=== PATIENT | male | born 1995 | race Hispanic/Latino ===

== ENCOUNTER 2019-05-02 11:38 | Emergency (ER) | payer OTHER ==
[2019-05-02] MEDS ORDERED: ONDANSETRON HCL 4 MG/2 ML VIAL ONE (12:28)
[2019-05-02] MEDS ORDERED: SODIUM CHLORIDE 0.9% 1000ML 1,000 ML IV ONE (12:28)
[2019-05-02] MEDS ORDERED: KETOROLAC TROMETHAMINE 30MG/ML ONE (12:28)
[2019-05-02 12:35] LABS: BASOPHILS % (AUTO) 0.5 % (0.0-5.0); HEMATOCRIT 50.2 % (42-54); LYMPHOCYTES % (AUTO) 4.4 % (21.0-51.0); MEAN CORPUSCULAR HEMOGLOBIN 30.4 pg (27.0-33.0); MEAN CORPUSCULAR HGB CONC 34.8 g/dL (32.0-36.0); MEAN CORPUSCULAR VOLUME 87.4 fL (79-99); MONOCYTES % (AUTO) 2.1 % (3.0-13.0); PLATELET COUNT (AUTO) 221 K/uL (130-400); RED BLOOD CELL COUNT(AUTO) 5.74 MIL/uL (4.50-6.20); RED CELL DISTRIBUTION WIDTH 12.8 % (11.0-15.5); WHITE BLOOD COUNT (AUTO) 15.8 K/uL (4.8-10.8)
[2019-05-02 12:35] LABS: APPEARANCE,URINE Clear (CLEAR); BILIRUBIN,URINE Negative (NEGATIVE); COLOR,URINE Yellow (YELLOW); GLUCOSE, URINE (UA) Negative (NEGATIVE); KETONES,URINE >=160 mg/dL (NEGATIVE); LEUKOCYTE ESTERASE ,URINE Negative (NEGATIVE); NITRATE,URINE Negative (NEGATIVE); OCCULT BLOOD,URINE Negative (NEGATIVE); PH,URINE >=9.0 (5.0-8.0); PROTEIN,URINE POS 1+ mg/dL (NEGATIVE)
[2019-05-02 12:44] LABS: AMPHET/METH SCREEN,URINE NEGATIVE (NEGATIVE); BARBITURATE SCREEN, URINE NEGATIVE (NEGATIVE); BENZODIAZEPINES SCREEN,URINE NEGATIVE (NEGATIVE); CANNABINOID SCREEN,URINE POSITIVE (NEGATIVE); COCAINE SCREEN,URINE NEGATIVE (NEGATIVE); OPIATE SCREEN,URINE NEGATIVE (NEGATIVE); PHENCYCLIDINE SCREEN,URINE NEGATIVE (NEGATIVE)
[2019-05-02 12:46] LABS: POTASSIUM 3.6 mmol/L (3.5-5.1)
[2019-05-02 12:50] LABS: ALBUMIN 4.9 g/dL (3.5-5.0); BILIRUBIN,DIRECT 0.2 mg/dL (0.0-0.3); BILIRUBIN,TOTAL 1.3 mg/dL (0.2-1.0); TOTAL PROTEIN, SERUM 8.4 g/dL (6.0-8.3)
[2019-05-02 12:51] LABS: BACTERIA,URINE Few /HPF (None Seen); MUCUS,URINE Few LPF (None Seen); SQUAMOUS EPITHELIAL CELL,UR 0-2 /HPF (0-2)
== END 2019-05-02 15:28 | disposition home or self-care (01) ==
LOC: EDH 11:38
DX: K52.9 Noninfective gastroenteritis and colitis, unspecified (principal); F12.10 Cannabis abuse, uncomplicated
CPT/HCPCS: 36415; 80048; 80076; 80305; 81001; 83690; 85025; 96361; 96374; 96375; 99285; J1885; J2405; J7030

== ENCOUNTER 2019-05-03 06:38 | Emergency (ER) | payer OTHER ==
[2019-05-03 07:28] LABS: BASOPHILS % (AUTO) 0.3 % (0.0-5.0); EOSINOPHILS % (AUTO) 0.1 % (0.0-8.0); HEMATOCRIT 48.7 % (42-54); LYMPHOCYTES % (AUTO) 9.9 % (21.0-51.0); MEAN CORPUSCULAR HEMOGLOBIN 30.3 pg (27.0-33.0); MONOCYTES % (AUTO) 8.4 % (3.0-13.0); NEUTROPHILS % (AUTO) 81.3 % (40.0-77.0); PLATELET COUNT (AUTO) 216 K/uL (130-400); RED BLOOD CELL COUNT(AUTO) 5.46 MIL/uL (4.50-6.20); RED CELL DISTRIBUTION WIDTH 12.9 % (11.0-15.5); WHITE BLOOD COUNT (AUTO) 16.5 K/uL (4.8-10.8)
[2019-05-03] MEDS ORDERED: PROCHLORPERAZINE EDISYLATE 10 MG/2 ML VIAL ONE (07:33)
[2019-05-03] MEDS ORDERED: DiphenhydrAMINE HCL 50 MG/ML VIAL ONE (07:33)
[2019-05-03] MEDS ORDERED: SODIUM CHLORIDE 0.9% 100 ML IV ONE (07:34)
[2019-05-03] MEDS ORDERED: FAMOTIDINE/PF 20 MG/2 ML VIAL IV ONE (07:35)
[2019-05-03 07:36] LABS: POTASSIUM 3.4 mmol/L (3.5-5.1)
[2019-05-03] MEDS ORDERED: IOHEXOL-350 75 ML VIAL IV ONE (07:55)
[2019-05-03 07:57] LABS: APPEARANCE,URINE CLEAR (CLEAR); BILIRUBIN,URINE MODERATE (NEGATIVE); COLOR,URINE YELLOW (YELLOW); GLUCOSE, URINE (UA) NEGATIVE (NEGATIVE); KETONES,URINE >=80 mg/dL (NEGATIVE); LEUKOCYTE ESTERASE ,URINE NEGATIVE (NEGATIVE); NITRATE,URINE NEGATIVE (NEGATIVE); OCCULT BLOOD,URINE TRACE-INTACT (NEGATIVE); PROTEIN,URINE 30 mg/dL (NEGATIVE)
[2019-05-03 08:07] LABS: ALBUMIN 4.3 g/dL (3.5-5.0); BILIRUBIN,TOTAL 1.4 mg/dL (0.2-1.0); TOTAL PROTEIN, SERUM 7.8 g/dL (6.0-8.3)
[2019-05-03 08:08] LABS: BACTERIA,URINE Few /HPF (None Seen); MUCUS,URINE Moderate LPF (None Seen)
[2019-05-03 08:10] LABS: AMPHET/METH SCREEN,URINE NEGATIVE (NEGATIVE); BARBITURATE SCREEN, URINE NEGATIVE (NEGATIVE); BENZODIAZEPINES SCREEN,URINE NEGATIVE (NEGATIVE); CANNABINOID SCREEN,URINE POSITIVE (NEGATIVE); COCAINE SCREEN,URINE NEGATIVE (NEGATIVE); OPIATE SCREEN,URINE NEGATIVE (NEGATIVE); PHENCYCLIDINE SCREEN,URINE NEGATIVE (NEGATIVE)
[2019-05-03] MEDS ORDERED: MAGNESIUM HYDROXIDE 30 ML/UDCUP ONE (08:20)
[2019-05-03] MEDS ORDERED: LIDOCAINE HCL 2% VISCOUS 15 ML UDCUP ONE (08:20)
[2019-05-03] MEDS ORDERED: SODIUM CHLORIDE 0.9% 1000ML 1,000 ML IV ONE (08:43)
== END 2019-05-03 09:37 | disposition home or self-care (01) ==
LOC: EDH 06:38
DX: A09 Infectious gastroenteritis and colitis, unspecified (principal); E86.0 Dehydration; R10.13 Epigastric pain; F12.10 Cannabis abuse, uncomplicated; Z72.0 Tobacco use; Z98.890 Other specified postprocedural states
CPT/HCPCS: 36415; 74177; 80053; 80305; 83690; 85025; 87804 ×2; 96361; 96374; 96375; 99285; J0780; J1200; J3490; J7030; Q9967

== ENCOUNTER 2022-08-31 19:46 | Inpatient (IN) | payer OTHER ==
[~2022-08-31] VITALS: Ht 167.6 cm; Wt 91.6 kg
[~2022-08-31 19:46] MED LIST: FAMO20TA8 PO; ONDA4TAB10 PO
[2022-08-31 20:27] LABS: BASOPHILS % (AUTO) 0.3 % (0.0-5.0); HEMATOCRIT 51.5 % (42-54); LYMPHOCYTES % (AUTO) 2.3 % (21.0-51.0); MEAN CORPUSCULAR HEMOGLOBIN 30.1 pg (27.0-33.0); MONOCYTES % (AUTO) 3.3 % (3.0-13.0); NEUTROPHILS % (AUTO) 93.1 % (40.0-77.0); PLATELET COUNT (AUTO) 261 K/uL (130-400); RED BLOOD CELL COUNT(AUTO) 5.99 MIL/uL (4.50-6.20); RED CELL DISTRIBUTION WIDTH 11.9 % (11.0-15.5)
[2022-08-31 20:44] LABS: ALBUMIN 4.6 g/dL (3.5-5.0); POTASSIUM 3.5 mmol/L (3.5-5.1); TOTAL PROTEIN, SERUM 8.6 g/dL (6.0-8.3)
[2022-08-31] MEDS ORDERED: MORPHINE 4 MG SYG IVP ONE (21:00)
[2022-08-31] MEDS ORDERED: 0.9%NACL 1000ML 1,000 ML IV ONE (21:00)
[2022-08-31] MEDS ORDERED: ONDANSETRON 4MG INJ IVP ONE (21:00)
[2022-08-31] MEDS ORDERED: FAMOTIDINE 20MG VIAL IV ONE ×2 (21:00→21:07)
[2022-08-31] MEDS ORDERED: IOHEXOL 350 MG/ML 100ML INFUS..BTL IV ONE (21:04)
[2022-08-31] MEDS ORDERED: ONDANSETRON 4MG INJ ONE (21:06)
[2022-08-31] MEDS ORDERED: MORPHINE 4 MG SYG ONE (21:07)
[2022-08-31 21:38] LABS: APPEARANCE,URINE CLEAR (CLEAR); BILIRUBIN,URINE NEGATIVE (NEGATIVE); COLOR,URINE YELLOW (YELLOW); GLUCOSE, URINE (UA) 30 mg/dL (NEGATIVE); KETONES,URINE 150 mg/dL (NEGATIVE); LEUKOCYTE ESTERASE ,URINE NEGATIVE Leu/uL (NEGATIVE); NITRATE,URINE NEGATIVE (NEGATIVE); PH,URINE 6.5 (5.0-8.0); PROTEIN,URINE 70 mg/dL (NEGATIVE)
[2022-08-31 21:45] LABS: AMPHET/METH SCREEN,URINE NEGATIVE (NEGATIVE); BARBITURATE SCREEN, URINE NEGATIVE (NEGATIVE); BENZODIAZEPINES SCREEN,URINE NEGATIVE (NEGATIVE); CANNABINOID SCREEN,URINE POSITIVE (NEGATIVE); COCAINE SCREEN,URINE POSITIVE (NEGATIVE); OPIATE SCREEN,URINE NEGATIVE (NEGATIVE); PHENCYCLIDINE SCREEN,URINE NEGATIVE (NEGATIVE)
[2022-08-31 21:56] LABS: BACTERIA,URINE RARE /HPF (None Seen); MUCUS,URINE FEW LPF (None Seen); SQUAMOUS EPITHELIAL CELL,UR RARE /HPF (0-2)
[2022-08-31] MEDS ORDERED: 0.9% NACL 500ML IV.SOLN 500 ML IV ONE (22:00)
[2022-08-31] MEDS ORDERED: LIDOCAINE HCL 2% VISCOUS 15 ML UDCUP PO ONE (22:00)
[2022-08-31] MEDS ORDERED: MAG/ALUM/SIMETH 30 ML UDCUP PO ONE (22:00)
[2022-08-31 23:03] LABS: BASOPHILS % (AUTO) 0.2 % (0.0-5.0); LYMPHOCYTES % (AUTO) 2.3 % (21.0-51.0); MEAN CORPUSCULAR HEMOGLOBIN 30.1 pg (27.0-33.0); MEAN CORPUSCULAR HGB CONC 34.6 g/dL (32.0-36.0); MONOCYTES % (AUTO) 3.6 % (3.0-13.0); NEUTROPHILS % (AUTO) 93.2 % (40.0-77.0); PLATELET COUNT (AUTO) 233 K/uL (130-400); RED BLOOD CELL COUNT(AUTO) 5.52 MIL/uL (4.50-6.20)
[2022-09-01] MEDS ORDERED: DiphenhydrAMINE HCL 50 MG/ML VIAL IV ONE
[2022-09-01] MEDS ORDERED: METOCLOPRAMIDE 10 MG/2 ML VIAL IVP ONE
[2022-09-01] MEDS ORDERED: ACETAMINOPHEN 325 MG TAB PO PRN ×2 (01:00)
[2022-09-01] MEDS ORDERED: LACTULOSE 20 GM/30 ML UDCUP PO PRN (01:00)
[2022-09-01] MEDS: 0.9%NACL 1000ML 1,000 ML IV SCH ×4 (01:45→21:20)
[2022-09-01] MEDS: METRONIDAZOLE 500MG/100ML BAG 100 ML IVPB SCH ×3 (07:05→21:20)
[2022-09-01] MEDS: PANTOPRAZOLE 40 MG/VIAL IVP SCH (08:32)
[2022-09-01] MEDS: KETOROLAC 30MG VIAL (30MG/ML) IM PRN (12:15)
[2022-09-01] MEDS: ONDANSETRON 4MG INJ IV PRN (12:29)
[2022-09-01 14:00] VITALS: BP 140/70
[2022-09-01 15:10] VITALS: BP 158/83
[2022-09-01 21:13] VITALS: BP 140/79
[2022-09-01 23:43] VITALS: BP 133/74
[2022-09-02 04:38] VITALS: BP 148/69
[2022-09-02] MEDS: METRONIDAZOLE 500MG/100ML BAG 100 ML IVPB SCH ×2 (05:54→14:38)
[2022-09-02] MEDS: ONDANSETRON 4MG INJ IV PRN ×3 (07:05→21:30)
[2022-09-02] MEDS: PANTOPRAZOLE 40 MG/VIAL IVP SCH (09:42)
[2022-09-02 09:51] VITALS: BP 136/66
[2022-09-02] MEDS: KETOROLAC 30MG VIAL (30MG/ML) IM PRN ×2 (10:55→23:30)
[2022-09-02] MEDS ORDERED: METR-172 PO (14:41)
[2022-09-02] MEDS ORDERED: DICY20TA3 PO (14:41)
[2022-09-02 14:59] LABS: BASOPHILS % (AUTO) 0.3 % (0.0-5.0); EOSINOPHILS % (AUTO) 0.3 % (0.0-8.0); HEMATOCRIT 45.1 % (42-54); LYMPHOCYTES % (AUTO) 13.4 % (21.0-51.0); MEAN CORPUSCULAR HEMOGLOBIN 30.5 pg (27.0-33.0); MEAN CORPUSCULAR HGB CONC 34.8 g/dL (32.0-36.0); MEAN CORPUSCULAR VOLUME 87.6 fL (79-99); MONOCYTES % (AUTO) 9.7 % (3.0-13.0); NEUTROPHILS % (AUTO) 75.8 % (40.0-77.0); PLATELET COUNT (AUTO) 214 K/uL (130-400); RED BLOOD CELL COUNT(AUTO) 5.15 MIL/uL (4.50-6.20); RED CELL DISTRIBUTION WIDTH 12.4 % (11.0-15.5); WHITE BLOOD COUNT (AUTO) 12.3 K/uL (4.8-10.8)
[2022-09-02] MEDS ORDERED: POTASSIUM CHLORIDE 20MEQ/100ML 100 ML IV PRN (15:00)
[2022-09-02] MEDS ORDERED: POTASSIUM CHLORIDE 10% ELIXIR 20 MEQ/15 ML UDCUP PO PRN (15:00)
[2022-09-02] MEDS ORDERED: LIDOCAINE HCL-MPF 1% 2ML VIAL IV PRN (15:00)
[2022-09-02 15:07] LABS: POTASSIUM 3.5 mmol/L (3.5-5.1)
[2022-09-02 15:12] LABS: ALBUMIN 3.9 g/dL (3.5-5.0); TOTAL PROTEIN, SERUM 7.4 g/dL (6.0-8.3)
[2022-09-02 15:40] VITALS: BP 150/96
[2022-09-02] MEDS: KCL 20 MEQ ERTAB PO PRN (15:42)
[2022-09-02] MEDS ORDERED: DICYCLOMINE HCL 20 MG TAB PO SCH (21:00)
[2022-09-02 21:05] VITALS: BP 123/76
[2022-09-02] MEDS: DICYCLOMINE HCL 20 MG TAB PO SCH (21:30)
[2022-09-02 23:58] VITALS: BP 157/86
[2022-09-03 03:42] VITALS: BP 138/80
[2022-09-03] MEDS: ONDANSETRON 4MG INJ IV PRN (03:43)
[2022-09-03] MEDS: KCL 20 MEQ ERTAB PO PRN ×2 (06:17→08:49)
[2022-09-03] MEDS: 0.9%NACL 1000ML 1,000 ML IV SCH (06:17)
[2022-09-03] MEDS: DICYCLOMINE HCL 20 MG TAB PO SCH (08:48)
[2022-09-03] MEDS: PANTOPRAZOLE 40 MG/VIAL IVP SCH (08:48)
[2022-09-03 09:34] VITALS: BP 152/86
[2022-09-03] MEDS ORDERED: ONDA-104 PO (10:47)
== END 2022-09-03 10:55 | disposition home or self-care (01) | DRG 392 ==
LOC: EDH 19:46 → EDHIP 19:47 → 4BH 09-01 13:35
PROVIDERS: ADMIT Hospitalist; ATTEND Hospitalist
DX: K52.9 Noninfective gastroenteritis and colitis, unspecified (principal); D72.829 Elevated white blood cell count, unspecified; E66.9 Obesity, unspecified; Z68.32 Body mass index [BMI] 32.0-32.9, adult
CPT/HCPCS: 36415; 71045; 74177; 80053; 80305; 81001; 83605; 83630; 83690; 84484; 85025; 86677; 87507; 93005; C9113; G0378; J1200; J1885; J2270; J2405; J2765; J3490; J7030; J7040; Q9967

== ENCOUNTER 2022-12-24 15:50 | Emergency (ER) | payer SELFPAY ==
[~2022-12-24] VITALS: Ht 167.6 cm; Wt 93.0 kg
[~2022-12-24 15:50] MED LIST changes: +DICY20TA3 PO; +METR-172 PO; +ONDA-104 PO
[2022-12-24 16:26] LABS: BASOPHILS % (AUTO) 0.4 % (0.0-5.0); EOSINOPHILS % (AUTO) 0.1 % (0.0-8.0); HEMATOCRIT 50.9 % (42-54); LYMPHOCYTES % (AUTO) 7.6 % (21.0-51.0); MEAN CORPUSCULAR HEMOGLOBIN 30.1 pg (27.0-33.0); MONOCYTES % (AUTO) 3.6 % (3.0-13.0); NEUTROPHILS % (AUTO) 87.9 % (40.0-77.0); PLATELET COUNT (AUTO) 270 K/uL (130-400); RED BLOOD CELL COUNT(AUTO) 5.92 MIL/uL (4.50-6.20)
[2022-12-24 16:48] LABS: CARBON DIOXIDE 18 mmol/L (21-32); CHLORIDE 102 mmol/L (101-111); GLOMERULAR FILTR. RATE CALC 107 mL/min (>90); GLUCOSE,RANDOM 135 mg/dL (70-105); POTASSIUM 3.4 mmol/L (3.5-5.1); SODIUM SERUM 136 mmol/L (136-145); UREA NITROGEN, BLOOD 13 mg/dL (7-18)
[2022-12-24 16:53] LABS: ALANINE AMINOTRANSFERASE 30 U/L (12-78); ASPARTATE AMINOTRANSFERASE 15 U/L (10-37); TOTAL PROTEIN, SERUM 8.6 g/dL (6.0-8.3)
[2022-12-24] MEDS ORDERED: ONDANSETRON 4MG TABLET PO ONE (17:00)
[2022-12-24] MEDS ORDERED: LIDOCAINE HCL 2% VISCOUS 15 ML UDCUP PO ONE (17:00)
[2022-12-24 17:04] LABS: LIPASE < 50 U/L (114-286)
[2022-12-24] MEDS ORDERED: ONDANSETRON ODT 4MG TAB ONE (17:10)
[2022-12-24] MEDS ORDERED: MAG/ALUM/SIMETH 30 ML UDCUP ONE (17:10)
[2022-12-24] MEDS ORDERED: MAG/ALUM/SIMETH 30 ML UDCUP PO ONE (17:30)
[2022-12-24 17:41] LABS: APPEARANCE,URINE CLEAR (CLEAR); BILIRUBIN,URINE NEGATIVE (NEGATIVE); COLOR,URINE YELLOW (YELLOW); GLUCOSE, URINE (UA) NEGATIVE (NEGATIVE); KETONES,URINE 150 mg/dL (NEGATIVE); LEUKOCYTE ESTERASE ,URINE NEGATIVE Leu/uL (NEGATIVE); NITRATE,URINE NEGATIVE (NEGATIVE); OCCULT BLOOD,URINE NEGATIVE (NEGATIVE); PH,URINE 6.5 (5.0-8.0); PROTEIN,URINE 70 mg/dL (NEGATIVE); UROBILINOGEN,URINE 3 mg/dL (0.2-1.0)
[2022-12-24 17:56] LABS: BACTERIA,URINE RARE /HPF (None Seen); MUCUS,URINE MOD LPF (None Seen); SQUAMOUS EPITHELIAL CELL,UR RARE /HPF (0-2)
[2022-12-24] MEDS ORDERED: POTASSIUM BICARB/CIT AC 25 MEQ TABLET.EFF PO ONE (18:00)
[2022-12-24] MEDS ORDERED: 0.9%NACL 1000ML 1,000 ML IV ONE (18:00)
[2022-12-24] MEDS ORDERED: PANTOPRAZOLE 40 MG/VIAL ONE (18:02)
[2022-12-24] MEDS ORDERED: ONDANSETRON 4MG INJ ONE (18:02)
[2022-12-24] MEDS ORDERED: ONDA-104 PO (18:28)
[2022-12-24] MEDS ORDERED: OMEP20TA20 PO (18:28)
[2022-12-24 19:27] VITALS: BP 147/78
== END 2022-12-24 19:28 | disposition home or self-care (01) ==
LOC: EDH 15:50
DX: K52.9 Noninfective gastroenteritis and colitis, unspecified (principal); Z90.89 Acquired absence of other organs; Z79.2 Long term (current) use of antibiotics; Z79.899 Other long term (current) drug therapy
CPT/HCPCS: 99284; 96374; 96361; 96375; 84484; 80053; 83690; 85025; 81001; 36415; 93005; J2405; C9113

== ENCOUNTER 2023-03-23 07:38 | Emergency (ER) | payer OTHER ==
[~2023-03-23] VITALS: Ht 167.6 cm; Wt 93.0 kg
[~2023-03-23 07:38] MED LIST changes: +OMEP20TA20 PO
[2023-03-23] MEDS ORDERED: LACTATED RINGERS 1000ML 1,000 ML IV ONE (08:00)
[2023-03-23 08:11] LABS: BASOPHILS % (AUTO) 0.9 % (0.0-5.0); EOSINOPHILS % (AUTO) 1.4 % (0.0-8.0); LYMPHOCYTES % (AUTO) 19.2 % (21.0-51.0); MEAN CORPUSCULAR HEMOGLOBIN 30.3 pg (27.0-33.0); MEAN CORPUSCULAR HGB CONC 34.2 g/dL (32.0-36.0); MEAN CORPUSCULAR VOLUME 88.7 fL (79-99); MONOCYTES % (AUTO) 6.3 % (3.0-13.0); NEUTROPHILS % (AUTO) 71.1 % (40.0-77.0); PLATELET COUNT (AUTO) 244 K/uL (130-400); RED BLOOD CELL COUNT(AUTO) 5.41 MIL/uL (4.50-6.20); RED CELL DISTRIBUTION WIDTH 12.6 % (11.0-15.5); WHITE BLOOD COUNT (AUTO) 14.1 K/uL (4.8-10.8)
[2023-03-23 08:13] LABS: APPEARANCE,URINE CLOUDY (CLEAR); BILIRUBIN,URINE NEGATIVE (NEGATIVE); COLOR,URINE YELLOW (YELLOW); GLUCOSE, URINE (UA) NEGATIVE (NEGATIVE); KETONES,URINE NEGATIVE (NEGATIVE); LEUKOCYTE ESTERASE ,URINE NEGATIVE Leu/uL (NEGATIVE); NITRATE,URINE NEGATIVE (NEGATIVE); OCCULT BLOOD,URINE NEGATIVE (NEGATIVE); PH,URINE 7.5 (5.0-8.0); PROTEIN,URINE NEGATIVE (NEGATIVE); UROBILINOGEN,URINE 0.2 mg/dL (0.2-1.0)
[2023-03-23] MEDS ORDERED: IOHEXOL 350 MG/ML 100ML INFUS..BTL IV ONE (08:19)
[2023-03-23 08:23] LABS: POTASSIUM 3.8 mmol/L (3.5-5.1)
[2023-03-23 08:28] LABS: ALBUMIN 3.9 g/dL (3.5-5.0); TOTAL PROTEIN, SERUM 7.3 g/dL (6.0-8.3)
[2023-03-23] MEDS ORDERED: ONDA4TAB10 PO (09:32)
[2023-03-23] MEDS ORDERED: PANT20TA18 PO (10:28)
[2023-03-23 10:33] VITALS: BP 140/80
== END 2023-03-23 10:44 | disposition home or self-care (01) ==
LOC: EDH 07:38
DX: R10.9 Unspecified abdominal pain (principal); R11.2 Nausea with vomiting, unspecified; R19.7 Diarrhea, unspecified; K21.9 Gastro-esophageal reflux disease without esophagitis; Z87.19 Personal history of other diseases of the digestive system; Z79.899 Other long term (current) drug therapy; Z90.89 Acquired absence of other organs
CPT/HCPCS: 99285; 74177; 96360; 80053; 83690; 85025; 81001; 36415; J7120; Q9967

== ENCOUNTER 2023-04-27 21:54 | Emergency (ER) | payer OTHER ==
[~2023-04-27] VITALS: Ht 167.6 cm; Wt 91.2 kg
[~2023-04-27 21:54] MED LIST changes: +PANT20TA18 PO
[2023-04-27 22:41] LABS: BASOPHILS # (AUTO) 0.07 K/uL (0.00-0.20); BASOPHILS % (AUTO) 0.4 % (0.0-5.0); EOSINOPHILS # (AUTO) 0.02 K/uL (0.00-0.70); EOSINOPHILS % (AUTO) 0.1 % (0.0-8.0); HEMATOCRIT 52.3 % (42-54); IMMATURE GRANULOCYTE ABSOLUTE 0.12 K/uL (0-1); LYMPHOCYTES # (AUTO) 1.3 K/uL (1.0-4.8); LYMPHOCYTES % (AUTO) 7.9 % (21.0-51.0); MEAN CORPUSCULAR HEMOGLOBIN 30.1 pg (27.0-33.0); MEAN CORPUSCULAR HGB CONC 34.4 g/dL (32.0-36.0); MEAN CORPUSCULAR VOLUME 87.3 fL (79-99); MONOCYTES # (AUTO) 0.8 K/uL (0.1-1.0); NEUTROPHILS # (AUTO) 14.2 K/uL (1.8-7.7); NEUTROPHILS % (AUTO) 85.9 % (40.0-77.0); PLATELET COUNT (AUTO) 269 K/uL (130-400); RED BLOOD CELL COUNT(AUTO) 5.99 MIL/uL (4.50-6.20); RED CELL DISTRIBUTION WIDTH 12.1 % (11.0-15.5); WHITE BLOOD COUNT (AUTO) 16.5 K/uL (4.8-10.8)
[2023-04-27] MEDS ORDERED: 0.9%NACL 1000ML 2,000 ML IV ONE (23:00)
[2023-04-27] MEDS ORDERED: PANTOPRAZOLE 40 MG/VIAL IVP ONE (23:00)
[2023-04-27] MEDS ORDERED: ONDANSETRON 4MG INJ IVP ONE (23:00)
[2023-04-27] MEDS ORDERED: MORPHINE 4 MG SYG IVP ONE (23:00)
[2023-04-27] MEDS ORDERED: MORPHINE 2 MG SYG ONE (23:09)
[2023-04-27 23:21] LABS: ALANINE AMINOTRANSFERASE 36 U/L (12-78); ALBUMIN 4.7 g/dL (3.5-5.0); ASPARTATE AMINOTRANSFERASE 19 U/L (10-37); BILIRUBIN,TOTAL 1.6 mg/dL (0.2-1.0); CARBON DIOXIDE 27 mmol/L (21-32); CHLORIDE 101 mmol/L (101-111); CREATININE 1.2 mg/dL (0.5-1.5); GLOMERULAR FILTR. RATE CALC 86 mL/min (>90); GLUCOSE,RANDOM 137 mg/dL (70-105); POTASSIUM 3.4 mmol/L (3.5-5.1); SODIUM SERUM 141 mmol/L (136-145); TOTAL PROTEIN, SERUM 8.7 g/dL (6.0-8.3); UREA NITROGEN, BLOOD 10 mg/dL (7-18)
[2023-04-27 23:31] LABS: LIPASE < 50 U/L (114-286)
[2023-04-28 00:38] VITALS: BP 149/74; PULSE 89; RESP 20; O2SAT 99
[2023-04-28] MEDS ORDERED: ONDA4TAB10 PO (01:45)
[2023-04-28 01:46] LABS: APPEARANCE,URINE CLOUDY (CLEAR); BILIRUBIN,URINE NEGATIVE (NEGATIVE); COLOR,URINE YELLOW (YELLOW); GLUCOSE, URINE (UA) NEGATIVE (NEGATIVE); KETONES,URINE 150 mg/dL (NEGATIVE); LEUKOCYTE ESTERASE ,URINE NEGATIVE Leu/uL (NEGATIVE); NITRATE,URINE NEGATIVE (NEGATIVE); OCCULT BLOOD,URINE NEGATIVE (NEGATIVE); PH,URINE 7.5 (5.0-8.0); PROTEIN,URINE 20 mg/dL (NEGATIVE); UROBILINOGEN,URINE 0.2 mg/dL (0.2-1.0)
[2023-04-28 01:51] LABS: ADD UA MICROSCOPIC YES
[2023-04-28 01:52] LABS: MUCUS,URINE FEW LPF (None Seen)
[2023-04-29] MEDS ORDERED: MOM30 PO (14:40)
[2023-04-29] MEDS ORDERED: FAMO20TA8 PO (14:40)
[2023-04-29] MEDS ORDERED: CIPR-278 PO (14:40)
[2023-04-29] MEDS ORDERED: METO10TA41 PO (14:40)
== END 2023-04-28 02:04 | disposition home or self-care (01) ==
LOC: EDH 21:54
DX: R10.13 Epigastric pain (principal); R11.2 Nausea with vomiting, unspecified; R19.7 Diarrhea, unspecified; Z79.899 Other long term (current) drug therapy
CPT/HCPCS: 99285; 96374; 96361; 76705; 96375; 80053; 83690; 85025; 81001; 36415; J2270; J7030; J2405; C9113

== ENCOUNTER 2023-04-29 10:26 | Emergency (ER) | payer OTHER ==
[~2023-04-29] VITALS: Ht 167.6 cm; Wt 93.0 kg
[2023-04-29 11:42] VITALS: BP 156/84; PULSE 88; RESP 16
[2023-04-29] MEDS ORDERED: LIDOCAINE HCL 2% VISCOUS 15 ML UDCUP PO ONE (12:30)
[2023-04-29] MEDS ORDERED: MAG/ALUM/SIMETH 30 ML UDCUP PO ONE (12:30)
[2023-04-29] MEDS ORDERED: PANTOPRAZOLE 40 MG/VIAL IVP ONE (13:00)
[2023-04-29 13:09] LABS: APPEARANCE,URINE CLEAR (CLEAR); BASOPHILS # (AUTO) 0.08 K/uL (0.00-0.20); BASOPHILS % (AUTO) 0.5 % (0.0-5.0); BILIRUBIN,URINE NEGATIVE (NEGATIVE); CARBON DIOXIDE 19 mmol/L (21-32); CHLORIDE 103 mmol/L (101-111); COLOR,URINE YELLOW (YELLOW); EOSINOPHILS # (AUTO) 0.01 K/uL (0.00-0.70); EOSINOPHILS % (AUTO) 0.1 % (0.0-8.0); GLOMERULAR FILTR. RATE CALC 106 mL/min (>90); GLUCOSE, URINE (UA) NEGATIVE (NEGATIVE); GLUCOSE,RANDOM 107 mg/dL (70-105); HEMATOCRIT 49.8 % (42-54); IMMATURE GRANULOCYTE ABSOLUTE 0.13 K/uL (0-1); KETONES,URINE 150 mg/dL (NEGATIVE); LEUKOCYTE ESTERASE ,URINE NEGATIVE Leu/uL (NEGATIVE); LYMPHOCYTES # (AUTO) 1.5 K/uL (1.0-4.8); LYMPHOCYTES % (AUTO) 10.1 % (21.0-51.0); MEAN CORPUSCULAR HEMOGLOBIN 30.1 pg (27.0-33.0); MEAN CORPUSCULAR HGB CONC 35.3 g/dL (32.0-36.0); MEAN CORPUSCULAR VOLUME 85.3 fL (79-99); MONOCYTES # (AUTO) 1.1 K/uL (0.1-1.0); MONOCYTES % (AUTO) 7.4 % (3.0-13.0); NEUTROPHILS # (AUTO) 12.2 K/uL (1.8-7.7); NITRATE,URINE NEGATIVE (NEGATIVE); OCCULT BLOOD,URINE NEGATIVE (NEGATIVE); PH,URINE 6.5 (5.0-8.0); PLATELET COUNT (AUTO) 288 K/uL (130-400); POTASSIUM 3.6 mmol/L (3.5-5.1); PROTEIN,URINE 50 mg/dL (NEGATIVE); RED BLOOD CELL COUNT(AUTO) 5.84 MIL/uL (4.50-6.20); RED CELL DISTRIBUTION WIDTH 12.2 % (11.0-15.5); SODIUM SERUM 141 mmol/L (136-145); UREA NITROGEN, BLOOD 11 mg/dL (7-18)
[2023-04-29 13:13] LABS: ADD UA MICROSCOPIC YES; ALANINE AMINOTRANSFERASE 28 U/L (12-78); ALBUMIN 4.5 g/dL (3.5-5.0); ASPARTATE AMINOTRANSFERASE 14 U/L (10-37); BILIRUBIN,TOTAL 1.5 mg/dL (0.2-1.0); TOTAL PROTEIN, SERUM 7.9 g/dL (6.0-8.3)
[2023-04-29 13:14] LABS: LIPASE < 50 U/L (114-286)
[2023-04-29 13:15] LABS: BACTERIA,URINE RARE /HPF (None Seen); MUCUS,URINE FEW LPF (None Seen); SQUAMOUS EPITHELIAL CELL,UR RARE /HPF (0-2); WBC,URINE 0-1 /HPF (0-1)
[2023-04-29] MEDS ORDERED: 0.9%NACL 1000ML 2,000 ML IV ONE (13:30)
[2023-04-29] MEDS ORDERED: CIPR-278 PO (14:40)
[2023-04-29] MEDS ORDERED: MOM30 PO (14:40)
[2023-04-29] MEDS ORDERED: METO10TA41 PO (14:40)
[2023-04-29] MEDS ORDERED: FAMO20TA8 PO (14:40)
== END 2023-04-29 15:35 | disposition home or self-care (01) ==
LOC: EDH 10:26
DX: K59.00 Constipation, unspecified (principal); R11.2 Nausea with vomiting, unspecified; Z87.19 Personal history of other diseases of the digestive system; Z79.899 Other long term (current) drug therapy; Z98.890 Other specified postprocedural states
CPT/HCPCS: 99285; 74176; 96374; 71045; 96361; 80053; 83690; 85025; 87040 ×2; 83605; 81001; 36415; J7030; C9113

== ENCOUNTER 2023-05-01 09:07 | Inpatient (IN) | payer OTHER ==
[~2023-05-01] VITALS: Ht 167.6 cm; Wt 90.2 kg
[~2023-05-01 09:07] MED LIST changes: +CIPR-278 PO; +METO10TA41 PO; +MOM30 PO
[2023-05-01] MEDS ORDERED: PANTOPRAZOLE 40 MG/VIAL IVP ONE (09:30)
[2023-05-01] MEDS ORDERED: LACTATED RINGERS 1000ML 1,000 ML IV ONE (09:30)
[2023-05-01] MEDS ORDERED: MORPHINE 4 MG SYG IVP ONE (09:30)
[2023-05-01] MEDS ORDERED: ONDANSETRON 4MG INJ IVP ONE (09:30)
[2023-05-01 09:34] LABS: BASOPHILS % (AUTO) 0.6 % (0.0-5.0); EOSINOPHILS # (AUTO) 0.16 K/uL (0.00-0.70); HEMATOCRIT 50.7 % (42-54); IMMATURE GRANULOCYTE ABSOLUTE 0.08 K/uL (0-1); LYMPHOCYTES # (AUTO) 1.9 K/uL (1.0-4.8); LYMPHOCYTES % (AUTO) 12.3 % (21.0-51.0); MEAN CORPUSCULAR HEMOGLOBIN 29.7 pg (27.0-33.0); MEAN CORPUSCULAR HGB CONC 35.3 g/dL (32.0-36.0); MEAN CORPUSCULAR VOLUME 84.1 fL (79-99); MONOCYTES # (AUTO) 1.6 K/uL (0.1-1.0); NEUTROPHILS # (AUTO) 11.7 K/uL (1.8-7.7); NEUTROPHILS % (AUTO) 75.6 % (40.0-77.0); PLATELET COUNT (AUTO) 286 K/uL (130-400); RED BLOOD CELL COUNT(AUTO) 6.03 MIL/uL (4.50-6.20); RED CELL DISTRIBUTION WIDTH 12.2 % (11.0-15.5); WHITE BLOOD COUNT (AUTO) 15.5 K/uL (4.8-10.8)
[2023-05-01 09:49] LABS: CREATININE 1.2 mg/dL (0.5-1.5); POTASSIUM 3.3 mmol/L (3.5-5.1)
[2023-05-01 09:54] LABS: ALBUMIN 4.5 g/dL (3.5-5.0); BILIRUBIN,TOTAL 1.5 mg/dL (0.2-1.0); TOTAL PROTEIN, SERUM 8.3 g/dL (6.0-8.3)
[2023-05-01] MEDS ORDERED: METOCLOPRAMIDE 10 MG/2 ML VIAL IVP ONE (12:00)
[2023-05-01 12:26] LABS: APPEARANCE,URINE TURBID (CLEAR); BILIRUBIN,URINE NEGATIVE (NEGATIVE); COLOR,URINE YELLOW (YELLOW); GLUCOSE, URINE (UA) NEGATIVE (NEGATIVE); KETONES,URINE 150 mg/dL (NEGATIVE); LEUKOCYTE ESTERASE ,URINE NEGATIVE Leu/uL (NEGATIVE); NITRATE,URINE NEGATIVE (NEGATIVE); OCCULT BLOOD,URINE NEGATIVE (NEGATIVE); PROTEIN,URINE 30 mg/dL (NEGATIVE); UROBILINOGEN,URINE 0.2 mg/dL (0.2-1.0)
[2023-05-01 12:32] LABS: ADD UA MICROSCOPIC YES
[2023-05-01 12:54] LABS: BACTERIA,URINE Rare /HPF (None Seen); RBC,URINE None Seen /HPF (0-1); SQUAMOUS EPITHELIAL CELL,UR Rare /HPF (0-2); WBC,URINE None Seen /HPF (0-1)
[2023-05-01] MEDS ORDERED: ACETAMINOPHEN 500 MG TABLET PO PRN (15:00)
[2023-05-01] MEDS ORDERED: PHARMACY COMMUNICATION MISC SCH (15:00)
[2023-05-01] MEDS: PANTOPRAZOLE 40 MG/VIAL IVP SCH (15:18)
[2023-05-01] MEDS: DEXTROSE 5 % AND 0.9 % NACL 1,000 ML IV SCH (15:19)
[2023-05-01 15:27] LABS: SARS-CoV-2, RNA, NAAT NEGATIVE SARS CoV-2 (NEGATIVE)
[2023-05-01] MEDS ORDERED: POTASSIUM BICARB/CIT AC 25 MEQ TABLET.EFF PO ONE (15:30)
[2023-05-01] MEDS ORDERED: CAPSAICIN CREAM 56.6GM TP SCH ×2 (16:00→21:00)
[2023-05-01 17:17] LABS: INR 1.03 (0.85-1.15); PROTHROMBIN TIME 11.9 SEC (9.6-11.6)
[2023-05-01 17:18] LABS: PARTIAL THROMBOPLASTIN TIME 29.9 SEC (26.3-35.5)
[2023-05-01 17:35] VITALS: BP 146/82; PULSE 69; RESP 20
[2023-05-01] MEDS: ONDANSETRON 4MG INJ IVP PRN (18:25)
[2023-05-01 20:01] VITALS: BP 148/82; PULSE 64; RESP 18
[2023-05-01] MEDS ORDERED: KCL 20 MEQ ERTAB PO ONE (20:30)
[2023-05-01] MEDS: CEFTRIAXONE 1G VIAL IVPB SCH (22:13)
[2023-05-01 22:23] VITALS: O2SAT 96
[2023-05-01 22:54] LABS: AMPHET/METH SCREEN,URINE NEGATIVE (NEGATIVE); BARBITURATE SCREEN, URINE NEGATIVE (NEGATIVE); BENZODIAZEPINES SCREEN,URINE NEGATIVE (NEGATIVE); CANNABINOID SCREEN,URINE POSITIVE (NEGATIVE); COCAINE SCREEN,URINE NEGATIVE (NEGATIVE); OPIATE SCREEN,URINE POSITIVE (NEGATIVE); PHENCYCLIDINE SCREEN,URINE NEGATIVE (NEGATIVE)
[2023-05-01 23:23] VITALS: BP 158/90; PULSE 70; RESP 20
[2023-05-02] VITALS (7 sets, daily range): BP systolic 137–155; BP diastolic 73–97; PULSE 62–86; RESP 17–19; TEMP 97.9; O2SAT 99
[2023-05-02] MEDS: DEXTROSE 5 % AND 0.9 % NACL 1,000 ML IV SCH ×4 (01:00→17:54)
[2023-05-02] MEDS: ONDANSETRON 4MG INJ IVP PRN ×4 (04:12→23:20)
[2023-05-02 05:25] LABS: BASOPHILS # (AUTO) 0.07 K/uL (0.00-0.20); BASOPHILS % (AUTO) 0.5 % (0.0-5.0); EOSINOPHILS # (AUTO) 0.27 K/uL (0.00-0.70); EOSINOPHILS % (AUTO) 2.1 % (0.0-8.0); IMMATURE GRANULOCYTE ABSOLUTE 0.09 K/uL (0-1); LYMPHOCYTES % (AUTO) 15.2 % (21.0-51.0); MEAN CORPUSCULAR HEMOGLOBIN 29.9 pg (27.0-33.0); MEAN CORPUSCULAR HGB CONC 33.8 g/dL (32.0-36.0); MEAN CORPUSCULAR VOLUME 88.3 fL (79-99); MONOCYTES # (AUTO) 1.3 K/uL (0.1-1.0); MONOCYTES % (AUTO) 10.3 % (3.0-13.0); NEUTROPHILS # (AUTO) 9.2 K/uL (1.8-7.7); NEUTROPHILS % (AUTO) 71.2 % (40.0-77.0); PLATELET COUNT (AUTO) 235 K/uL (130-400); RED BLOOD CELL COUNT(AUTO) 5.32 MIL/uL (4.50-6.20); RED CELL DISTRIBUTION WIDTH 12.3 % (11.0-15.5); WHITE BLOOD COUNT (AUTO) 12.9 K/uL (4.8-10.8)
[2023-05-02 05:43] LABS: ALBUMIN 3.6 g/dL (3.5-5.0); BILIRUBIN,TOTAL 1.2 mg/dL (0.2-1.0); CREATININE 0.9 mg/dL (0.5-1.5); MAGNESIUM 2.2 mg/dL (1.80-2.40); POTASSIUM 3.9 mmol/L (3.5-5.1); TOTAL PROTEIN, SERUM 7.2 g/dL (6.0-8.3)
[2023-05-02] MEDS: CEFTRIAXONE 1G VIAL IVPB SCH (09:02)
[2023-05-02 12:49] LABS: CREATININE 1.1 mg/dL (0.5-1.5); HEMOGLOBIN A1C 5.3 % (4.0-6.0); POTASSIUM 4.2 mmol/L (3.5-5.1)
[2023-05-02] MEDS: PANTOPRAZOLE 40 MG/VIAL IVP SCH (15:16)
[2023-05-03] MEDS: DEXTROSE 5 % AND 0.9 % NACL 1,000 ML IV SCH ×2 (07:00→21:56)
[2023-05-03 08:00] VITALS: BP 135/66; PULSE 70; RESP 18
[2023-05-03 08:05] VITALS: O2SAT 99
[2023-05-03 11:10] LABS: BASOPHILS # (AUTO) 0.07 K/uL (0.00-0.20); BASOPHILS % (AUTO) 0.5 % (0.0-5.0); EOSINOPHILS # (AUTO) 0.28 K/uL (0.00-0.70); EOSINOPHILS % (AUTO) 1.9 % (0.0-8.0); HEMATOCRIT 48.1 % (42-54); LYMPHOCYTES # (AUTO) 2.7 K/uL (1.0-4.8); LYMPHOCYTES % (AUTO) 18.5 % (21.0-51.0); MEAN CORPUSCULAR HGB CONC 34.3 g/dL (32.0-36.0); MEAN CORPUSCULAR VOLUME 87.5 fL (79-99); MONOCYTES # (AUTO) 1.6 K/uL (0.1-1.0); MONOCYTES % (AUTO) 10.9 % (3.0-13.0); NEUTROPHILS # (AUTO) 9.9 K/uL (1.8-7.7); NEUTROPHILS % (AUTO) 67.5 % (40.0-77.0); PLATELET COUNT (AUTO) 240 K/uL (130-400); RED CELL DISTRIBUTION WIDTH 12.3 % (11.0-15.5); WHITE BLOOD COUNT (AUTO) 14.7 K/uL (4.8-10.8)
[2023-05-03 11:35] VITALS: BP 129/70; PULSE 79; RESP 18
[2023-05-03 11:44] LABS: CREATININE 1.1 mg/dL (0.5-1.5); POTASSIUM 3.7 mmol/L (3.5-5.1)
[2023-05-03] MEDS: THIAMINE HCL 100 MG/ML 2ML VIAL IVP SCH (11:48)
[2023-05-03] MEDS: PANTOPRAZOLE 40 MG/VIAL IVP SCH (14:26)
[2023-05-03 16:07] VITALS: BP 134/85; PULSE 76; RESP 18
[2023-05-03] MEDS: ONDANSETRON 4MG INJ IVP PRN ×2 (17:17→22:50)
[2023-05-03 20:00] VITALS: BP 175/80; PULSE 70; RESP 20; O2SAT 99
[2023-05-04] VITALS: BP 141/92; PULSE 100; RESP 18
[2023-05-04] MEDS: DEXTROSE 5 % AND 0.9 % NACL 1,000 ML IV SCH ×2 (02:14→09:23)
[2023-05-04 04:00] VITALS: BP 137/87; PULSE 93; RESP 20
[2023-05-04 05:44] LABS: HEMATOCRIT 48.6 % (42-54); MEAN CORPUSCULAR HEMOGLOBIN 29.9 pg (27.0-33.0); MEAN CORPUSCULAR HGB CONC 34.6 g/dL (32.0-36.0); MEAN CORPUSCULAR VOLUME 86.5 fL (79-99); RED BLOOD CELL COUNT(AUTO) 5.62 MIL/uL (4.50-6.20); RED CELL DISTRIBUTION WIDTH 12.3 % (11.0-15.5); WHITE BLOOD COUNT (AUTO) 13.3 K/uL (4.8-10.8)
[2023-05-04 06:18] LABS: CREATININE 1.1 mg/dL (0.5-1.5); POTASSIUM 3.6 mmol/L (3.5-5.1)
[2023-05-04 07:56] VITALS: O2SAT 96
[2023-05-04 08:00] VITALS: BP 138/81; PULSE 53; RESP 18
[2023-05-04] MEDS: THIAMINE HCL 100 MG/ML 2ML VIAL IVP SCH (11:33)
[2023-05-04 12:04] VITALS: BP 129/70; PULSE 96; RESP 18
[2023-05-04] MEDS ORDERED: FAMO20TA8 PO (12:37)
[2023-05-04] MEDS ORDERED: METO10TA41 PO (12:37)
== END 2023-05-04 16:55 | disposition home or self-care (01) | DRG 641 ==
LOC: EDH 09:07 → EDHIP 09:08 → 3BH 17:35
PROVIDERS: ADMIT Internal Medicine; ATTEND Internal Medicine
DX: E86.0 Dehydration (principal); T73.0XXA Starvation, initial encounter; F12.10 Cannabis abuse, uncomplicated; Z20.822 Contact with and (suspected) exposure to COVID-19; E87.6 Hypokalemia; E88.89 Other specified metabolic disorders; D72.829 Elevated white blood cell count, unspecified; Z87.891 Personal history of nicotine dependence; K21.9 Gastro-esophageal reflux disease without esophagitis; X58.XXXA Exposure to other specified factors, initial encounter
CPT/HCPCS: 36415; 74021; 80048; 80053; 80305; 81001; 82010; 83036; 83605; 83690; 83735; 84145; 85025; 85027; 85610; 85651; 85730; 86140; 87046; 87177; 87324; 87635; C9113; G0378; J0696; J2270; J2405; J2765; J3411; J7042; J7120

== ENCOUNTER 2023-07-09 18:50 | Emergency (ER) | payer OTHER ==
[~2023-07-09] VITALS: Ht 167.6 cm; Wt 91.2 kg
[~2023-07-09 18:50] MED LIST changes: -CIPR-278 PO; -DICY20TA3 PO; -METR-172 PO; -MOM30 PO; -OMEP20TA20 PO; -ONDA-104 PO; -ONDA4TAB10 PO; -PANT20TA18 PO
[2023-07-09] MEDS ORDERED: ONDANSETRON ODT 4MG TAB SL ONE (20:30)
[2023-07-09] MEDS ORDERED: LIDOCAINE HCL 2% VISCOUS 15 ML UDCUP PO ONE (20:30)
[2023-07-09] MEDS ORDERED: MAG/ALUM/SIMETH 30 ML UDCUP PO ONE (20:30)
[2023-07-09] MEDS ORDERED: ONDANSETRON 4MG INJ IVP ONE (22:00)
[2023-07-09] MEDS ORDERED: 0.9%NACL 1000ML 2,000 ML IV ONE (22:00)
[2023-07-09 22:30] LABS: BASOPHILS # (AUTO) 0.09 K/uL (0.00-0.20); BASOPHILS % (AUTO) 0.5 % (0.0-5.0); EOSINOPHILS # (AUTO) 0.01 K/uL (0.00-0.70); EOSINOPHILS % (AUTO) 0.1 % (0.0-8.0); HEMATOCRIT 53.2 % (42-54); IMMATURE GRANULOCYTE ABSOLUTE 0.17 K/uL (0-1); LYMPHOCYTES # (AUTO) 0.7 K/uL (1.0-4.8); LYMPHOCYTES % (AUTO) 3.7 % (21.0-51.0); MEAN CORPUSCULAR HEMOGLOBIN 30.1 pg (27.0-33.0); MEAN CORPUSCULAR VOLUME 86.2 fL (79-99); MONOCYTES # (AUTO) 0.6 K/uL (0.1-1.0); NEUTROPHILS # (AUTO) 18.3 K/uL (1.8-7.7); NEUTROPHILS % (AUTO) 91.8 % (40.0-77.0); PLATELET COUNT (AUTO) 282 K/uL (130-400); RED BLOOD CELL COUNT(AUTO) 6.17 MIL/uL (4.50-6.20); RED CELL DISTRIBUTION WIDTH 12.6 % (11.0-15.5); WHITE BLOOD COUNT (AUTO) 19.9 K/uL (4.8-10.8)
[2023-07-09 22:48] LABS: CREATININE 1.2 mg/dL (0.5-1.5); POTASSIUM 4.1 mmol/L (3.5-5.1)
[2023-07-09 22:53] LABS: ALBUMIN 4.7 g/dL (3.5-5.0); BILIRUBIN,TOTAL 1.5 mg/dL (0.2-1.0); TOTAL PROTEIN, SERUM 8.8 g/dL (6.0-8.3)
[2023-07-09 23:50] LABS: APPEARANCE,URINE CLEAR (CLEAR); BILIRUBIN,URINE NEGATIVE (NEGATIVE); GLUCOSE, URINE (UA) NEGATIVE (NEGATIVE); KETONES,URINE 150 mg/dL (NEGATIVE); LEUKOCYTE ESTERASE ,URINE NEGATIVE Leu/uL (NEGATIVE); NITRATE,URINE NEGATIVE (NEGATIVE); OCCULT BLOOD,URINE NEGATIVE (NEGATIVE); PROTEIN,URINE 200 mg/dL (NEGATIVE)
[2023-07-09 23:51] LABS: ADD UA MICROSCOPIC YES; COLOR,URINE AMBER (YELLOW)
[2023-07-09 23:57] LABS: AMPHET/METH SCREEN,URINE NEGATIVE (NEGATIVE); BARBITURATE SCREEN, URINE NEGATIVE (NEGATIVE); BENZODIAZEPINES SCREEN,URINE NEGATIVE (NEGATIVE); CANNABINOID SCREEN,URINE POSITIVE (NEGATIVE); COCAINE SCREEN,URINE NEGATIVE (NEGATIVE); OPIATE SCREEN,URINE NEGATIVE (NEGATIVE); PHENCYCLIDINE SCREEN,URINE NEGATIVE (NEGATIVE)
[2023-07-10 00:03] LABS: BACTERIA,URINE None Seen /HPF (None Seen); MUCUS,URINE Many LPF (None Seen); WBC,URINE 0-1 /HPF (0-1)
[2023-07-10 00:54] VITALS: BP 115/62; PULSE 74; RESP 18; O2SAT 98
[2023-07-10] MEDS ORDERED: CIPR-278 PO (01:04)
[2023-07-10] MEDS ORDERED: ONDA4TAB10 PO (01:04)
== END 2023-07-10 01:22 | disposition home or self-care (01) ==
LOC: EDH 18:50
DX: K52.9 Noninfective gastroenteritis and colitis, unspecified (principal); E86.0 Dehydration; R11.2 Nausea with vomiting, unspecified; D72.829 Elevated white blood cell count, unspecified; G56.00 Carpal tunnel syndrome, unspecified upper limb; Z79.899 Other long term (current) drug therapy; Z90.49 Acquired absence of other specified parts of digestive tract; Z90.89 Acquired absence of other organs
CPT/HCPCS: 99285; 96374; 96375; 82550; 84484; 80053; 80305; 83690; 85025; 83605; 36415; 81001; 74018; 93005; J7030; J2405

== ENCOUNTER 2024-05-31 11:36 | Emergency (ER) | payer SELFPAY ==
[~2024-05-31] VITALS: Ht 170.2 cm; Wt 95.3 kg
[~2024-05-31 11:36] MED LIST changes: +ONDA-243 PO
[2024-05-31] MEDS: 0.9%NACL 1000ML 1,000 ML IV ONE (12:01)
[2024-05-31] MEDS: ketOROlac 30MG VIAL (30MG/ML) IVP ONE (12:02)
[2024-05-31 12:12] LABS: BASOPHILS # (AUTO) 0.11 K/uL (0.00-0.20); BASOPHILS % (AUTO) 0.8 % (0.0-5.0); EOSINOPHILS # (AUTO) 0.21 K/uL (0.00-0.70); EOSINOPHILS % (AUTO) 1.5 % (0.0-8.0); HEMATOCRIT 49.1 % (42-54); IMMATURE GRANULOCYTE ABSOLUTE 0.15 K/uL (0-1); LYMPHOCYTES # (AUTO) 2.6 K/uL (1.0-4.8); LYMPHOCYTES % (AUTO) 18.3 % (21.0-51.0); MEAN CORPUSCULAR HGB CONC 34.4 g/dL (32.0-36.0); MEAN CORPUSCULAR VOLUME 87.2 fL (79-99); MONOCYTES # (AUTO) 1.1 K/uL (0.1-1.0); MONOCYTES % (AUTO) 7.4 % (3.0-13.0); NEUTROPHILS # (AUTO) 10.1 K/uL (1.8-7.7); NEUTROPHILS % (AUTO) 70.9 % (40.0-77.0); PLATELET COUNT (AUTO) 279 K/uL (130-400); RED BLOOD CELL COUNT(AUTO) 5.63 MIL/uL (4.50-6.20); RED CELL DISTRIBUTION WIDTH 11.9 % (11.0-15.5); WHITE BLOOD COUNT (AUTO) 14.3 K/uL (4.8-10.8)
[2024-05-31 12:19] LABS: APPEARANCE,URINE CLOUDY (CLEAR); BILIRUBIN,URINE NEGATIVE (NEGATIVE); COLOR,URINE YELLOW (YELLOW); GLUCOSE, URINE (UA) NEGATIVE (NEGATIVE); KETONES,URINE NEGATIVE (NEGATIVE); LEUKOCYTE ESTERASE ,URINE NEGATIVE Leu/uL (NEGATIVE); NITRATE,URINE NEGATIVE (NEGATIVE); OCCULT BLOOD,URINE NEGATIVE (NEGATIVE); PH,URINE 7.5 (5.0-8.0); PROTEIN,URINE NEGATIVE (NEGATIVE); UROBILINOGEN,URINE 0.2 mg/dL (0.2-1.0)
[2024-05-31 12:31] LABS: ADD UA MICROSCOPIC YES
[2024-05-31 12:36] LABS: SQUAMOUS EPITHELIAL CELL,UR RARE /HPF (0-2); WBC,URINE 0-1 /HPF (0-1)
[2024-05-31 12:42] LABS: CREATININE 0.9 mg/dL (0.5-1.3); POTASSIUM 4.1 mmol/L (3.5-5.1)
[2024-05-31 12:46] LABS: BILIRUBIN,TOTAL 0.8 mg/dL (0.2-1.0)
[2024-05-31] MEDS ORDERED: IOHEXOL-350 75 ML VIAL IV ONE (13:13)
[2024-05-31 13:24] VITALS: TEMP 98.1
[2024-05-31 14:43] VITALS: BP 137/86; PULSE 71; RESP 16; O2SAT 99
[2024-05-31] MEDS ORDERED: CIPR-278 PO (14:47)
[2024-05-31] MEDS ORDERED: DICY20TA2 PO (14:47)
== END 2024-05-31 14:57 | disposition home or self-care (01) ==
LOC: EDH 11:36
DX: K80.70 Calculus of gallbladder and bile duct without cholecystitis without obstruction (principal); Z79.899 Other long term (current) drug therapy; Z98.890 Other specified postprocedural states; Z90.89 Acquired absence of other organs
CPT/HCPCS: 99285; 74177; 96374; 76705; 96361; 80053; 83690; 85025; 81001; 36415; J7030; J1885; Q9967